=== PATIENT | female | born 1980 | race Two or more races ===

== ENCOUNTER 2016-12-14 08:15 | Emergency (ER) | payer OTHER ==
[2016-12-14 08:26] VITALS: BP 133/86; PULSE 90; TEMP 98.3; BMI 29.2
--- NOTE | 2016-12-14 08:38 | PDOC ---
History of Present Illness - General Chief Complaint: Sore Throat Stated Complaint: SORE THROAT Time Seen by Provider: 12/14/16 08:37 History Source: Patient Exam Limitations: No Limitations - History of Present Illness Initial Comments: 12/14/16 09:03 CHIEF COMPLAINT: Sore throat nasal congestion cough with body aches HISTORY OF PRESENT ILLNESS: Pt. is a 36-year-old female with history of fatty liver here today complaining of sore throat, nasal congestion, chills, with subjective fever and body aches with productive cough of greenish phlegm 3 days. Patient reports that she is up-to-date with immunizations including influenza. Patient denies any sick contacts. Patient denies any difficulty swallowing or any shortness of breath. Patient has had no recent travel. Timing/Duration: intermittent Severity: mild Associated Symptoms: reports: cough (greenish phelgm ), fever/chills, other ( bodyaches and sore throat, nasal congestion ) Past History - Past Medical History Allergies/Adverse Reactions: Allergies Allergy/AdvReac Type Severity Reaction Status Date / Time amoxicillin [Amoxicillin] Allergy Rash Verified 12/14/16 08:26 latex [Latex] Allergy Rash Verified 12/14/16 08:26 Home Medications: Ambulatory Orders Guaifenesin Dm [Mucinex Dm -] 1 tab PO Q12H PRN #10 tab.er.12h MDD 2 12/14/16 Liver Disease: Yes (FATTY LIVER) Suicide Attempt (Hx): No - Surgical History Abdominal Surgery: Yes Cholecystectomy: Yes - Immunization History Immunization Up to Date: Yes - Psycho/Social/Smoking Cessation Hx Anxiety: No Suicidal Ideation: No Smoking Status: No Smoking History: Never smoked Have you smoked in the past 12 months: No Number of Cigarettes Smoked Daily: 0 Information on smoking cessation initiated: No Hx Alcohol Use: No Drug/Substance Use Hx: No Substance Use Type: None Review of Systems - Review of Systems Able to Perform ROS?: Yes Constitutional: Yes: Chills, Fever (subjective ) HEENTM: Yes: Nose Congestion, Throat Pain Respiratory: Yes: Productive cough (greenish phelgm ). No: Orthopnea, Shortness of Breath, SOB with Exertion, SOB at Rest, Stridor, Wheezing, Hemoptysis Cardiac (ROS): No: Symptoms Reported ABD/GI: No: Symptoms Reported : No: Symptoms Reported Musculoskeletal: Yes: Other (bodyaches) Integumentary: No: Symptoms Reported Neurological: No: Symptoms reported *Physical Exam - Vital Signs Last Vital Signs Temp Pulse Resp BP Pulse Ox 98.3 F 90 18 133/86 98 12/14/16 08:23 12/14/16 08:23 12/14/16 08:23 12/14/16 08:23 12/14/16 08:23 - Physical Exam General Appearance: Yes: Appropriately Dressed HEENT: positive: TMs Normal, Pharyngeal Erythema, Nasal Congestion. negative: Tonsillar Exudate, Tonsillar Erythema, Rhinorrhea, Sinus Tenderness Neck: negative: Lymphadenopathy (R), Lymphadenopathy (L) Respiratory/Chest: positive: Lungs Clear, Normal Breath Sounds. negative: Chest Tender, Respiratory Distress Cardiovascular: positive: Regular Rhythm, Regular Rate, S1, S2 Integumentary: positive: Normal Color Neurologic: positive: Alert, Responsive Medical Decision Making - Medical Decision Making 12/14/16 09:04 Pt. is a 36-year-old female with history of fatty liver here today complaining of sore throat, nasal congestion, chills, with subjective fever and body aches with productive cough of greenish phlegm 3 days. Patient reports that she is up -to-date with immunizations including influenza. Patient denies any sick contacts. Patient denies any difficulty swallowing or any shortness of breath. Patient has had no recent travel. She took ibuprofen at 7 AM today. R/o Strep Throat R/O influenza A or B URI PLAN: throat C & S negative influenza A or B rapid negative Mucinex DM 1 cap q12 hrs prn cough # 10 12/14/16 09:43 *DC/Admit/Observation/Transfer Diagnosis at time of Disposition: Upper respiratory infection, viral - Discharge Dispostion Disposition: HOME Condition at time of disposition: Stable - Prescriptions Prescriptions: Guaifenesin Dm [Mucinex Dm -] 1 tab PO Q12H PRN #10 tab.er.12h MDD 2 PRN Reason: Cough - Patient Instructions Additional Instructions: Drink A lot a fluids and rest Take ibuprofen as needed as directed by online marketing strategist for body aches or fever Return to emergency room if symptoms worsen any difficulty breathing or swallowing or any new symptoms develop Follow-up with your primary care provider within the next few days Patient voiced understanding of discharge instructions and all questions were answered - Post Discharge Activity Work/School Note: Back to Work
== END 2016-12-14 09:54 | disposition home or self-care (01) ==
LOC: JERFT 08:15
DX: J06.9 Acute upper respiratory infection, unspecified (principal); B97.89 Other viral agents as the cause of diseases classified elsewhere
CPT/HCPCS: 87070; 87430; 87804; 99281-25

== ENCOUNTER 2017-02-17 10:14 | Emergency (ER) | payer OTHER ==
[2017-02-17 10:28] VITALS: BP 118/85; PULSE 77; TEMP 97.8; BMI 30.2
[2017-02-17] MEDS ORDERED: KETOROLAC TROMETHAMINE 60 MG/2 ML VIAL ONE (11:05)
[2017-02-17] MEDS ORDERED: CYCLOBENZAPRINE HCL 10 MG TABLET (FP) ONE ×2 (11:05→11:15)
[2017-02-17] MEDS ORDERED: CYCLOBENZAPRINE HCL 10 MG TABLET (FP) PO ONE (11:19)
[2017-02-17] MEDS ORDERED: KETOROLAC TROMETHAMINE 60 MG/2 ML VIAL IM ONE (11:19)
--- NOTE | 2017-02-17 11:24 | PDOC ---
History of Present Illness - General Chief Complaint: Back Pain Stated Complaint: BACK PAIN Time Seen by Provider: 02/17/17 10:35 History Source: Patient Exam Limitations: No Limitations - History of Present Illness Initial Comments: 02/17/17 11:20 Patient is here with complaints of left back pain. 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 pain has progressively worsened over the past few days. Had same type of pain in her right side some years ago. Otherwise no recent trauma, fevers, no problems with bowel or bladder otherwise been mildly constipated past couple days. I tubal ligation many years ago and is not sexually active now 02/17/17 11:43 Occurred: reports: just prior to arrival Pain Location: reports: back Method of Injury: Yes: unknown Associated Symptoms (Fall): denies symptoms Past History - Travel Traveled outside of the country in the last 30 days: No Close contact w/someone who was outside of country & ill: No - Past Medical History Allergies/Adverse Reactions: Allergies Allergy/AdvReac Type Severity Reaction Status Date / Time amoxicillin [Amoxicillin] Allergy Rash Verified 02/17/17 10:19 latex [Latex] Allergy Rash Verified 02/17/17 10:19 Home Medications: Ambulatory Orders Cyclobenzaprine HCl [Flexeril 10 mg] 10 mg PO BID PRN #14 tablet 02/17/17 Liver Disease: Yes (FATTY LIVER) Suicide Attempt (Hx): No - Surgical History Abdominal Surgery: Yes Cholecystectomy: Yes - Immunization History Immunization Up to Date: Yes - Psycho/Social/Smoking Cessation Hx Anxiety: No Suicidal Ideation: No Smoking Status: No Smoking History: Never smoked Have you smoked in the past 12 months: No Number of Cigarettes Smoked Daily: 0 Information on smoking cessation initiated: No Hx Alcohol Use: No Drug/Substance Use Hx: No Substance Use Type: None Trauma Specific PMHX - Complaint Specific PMHX Back Injury: Yes Neck Injury: Yes Review of Systems - Review of Systems Able to Perform ROS?: Yes Is the patient limited Mongolian proficient: Yes Constitutional: Yes: Symptoms Reported, See HPI. No: Malaise HEENTM: Yes: See HPI. No: Symptoms Reported Respiratory: Yes: See HPI. No: Symptoms reported, Cough Musculoskeletal: Yes: Symptoms Reported, See HPI, Back Pain Integumentary: No: Symptoms Reported Neurological: Yes: Symptoms reported, See HPI All Other Systems: Reviewed and Negative *Physical Exam - Vital Signs Last Vital Signs Temp Pulse Resp BP Pulse Ox 97.8 F 77 18 118/85 98 02/17/17 10:16 02/17/17 10:16 02/17/17 10:16 02/17/17 10:16 02/17/17 10:16 - Physical Exam General Appearance: Yes: Nourished, Appropriately Dressed, Apparent Distress, Mild Distress HEENT: positive: EOMI, DENICE, Normal ENT Inspection, TMs Normal, Pharynx Normal Neck: positive: Supple. negative: Tender Respiratory/Chest: positive: Lungs Clear, Normal Breath Sounds Cardiovascular: positive: Regular Rate Gastrointestinal/Abdominal: positive: Normal Bowel Sounds, Soft. negative: Tender, Guarding, Rebound, Tenderness Musculoskeletal: positive: Normal Inspection Extremity: positive: Normal Capillary Refill, Normal Inspection Integumentary: positive: Normal Color, Dry Neurologic: positive: catering cook II-XII NML intact, Fully Oriented, Alert, Normal Mood/ Affect, Normal Response, Motor Strength 5/5 Progress Note - Progress Note Progress Note: back strain- treat with NSAIDs and cyclobenzaprine *DC/Admit/Observation/Transfer Diagnosis at time of Disposition: Muscle spasm of back - Discharge Dispostion Disposition: HOME Condition at time of disposition: Stable Admit: No - Patient Instructions Printed Discharge Instructions: DI for Back Spasm Additional Instructions: Rest, no heavy lifting or exercise until pain is resolved Hot soaks to neck and low back as often as possible/hot showers or Jacuzzis No massage or therapy until spasm is gone Continue ibuprofen 2-200 mg tablets every 6 hours for the next 3 days then as needed for pain and swelling Cyclobenzaprine 1-10mg every 8 hours as needed for spasm If not significant improvement within 24 hours with medication and rest regime, followup with private physician for change in medications and /or therapy. - Post Discharge Activity Work/School Note: Back to Work
== END 2017-02-17 11:51 | disposition home or self-care (01) ==
LOC: JERFT 10:14
PROC: 3E0233Z Introduction of Anti-inflammatory into Muscle, Percutaneous Approach (ICD-10-PCS; principal; 2017-02-17)
DX: M62.830 Muscle spasm of back (principal); K76.0 Fatty (change of) liver, not elsewhere classified
CPT/HCPCS: 99281-25

== ENCOUNTER 2017-11-22 15:16 | Emergency (ER) | payer OTHER ==
[2017-11-22 15:40] VITALS: TEMP 98.2; BMI 28.9
--- NOTE | 2017-11-22 15:42 | PDOC ---
Rapid Medical Evaluation Time Seen by Provider: 11/22/17 15:39 Medical Evaluation: Allergies Allergy/AdvReac Type Severity Reaction Status Date / Time amoxicillin [Amoxicillin] Allergy Rash Verified 11/22/17 15:35 latex [Latex] Allergy Rash Verified 11/22/17 15:35 11/22/17 15:39 I have performed a brief in-person evaluation of this patient. The patient presents with a chief complaint of sorethroat x 2 days, pelvic cramping and heavy vaginal bleeding since biopsy 11/14/17 and requesting hiv testing. Denies dizziness, headache or shortness of breath. Pertinent physical exam finding are NAD unlabored breathing +bowel sounds, non tender abdomen I have ordered the following: labs, rapid strep, urine preg ordered The patient will proceed to the ED for further evaluation.
--- NOTE | 2017-11-22 16:25 | PDOC ---
Attending Attestation - Resident Resident Name: AmericaPoonam - ED Attending Attestation I have performed the following: I have examined & evaluated the patient, The case was reviewed & discussed with the resident, I agree w/resident's findings & plan - HPI HPI: 11/22/17 16:23 37-year-old female presents requesting HIV testing and evaluation for vaginal bleeding. Patient recently found out that her ex- tested positive for HIV , unclear when he converted or contracted the illness. She has not had any significant exposure to him in about 11 years. She has no red flags on history or physical exam. Patient also had colposcopy a few days ago. She has irregular menses, and began having vaginal bleeding prior to the colposcopy, now presents with increased vaginal bleeding since then. Mild cramping but no generalized abdominal pain, no fevers or chills. - Physicial Exam PE: 11/22/17 16:24 Vital signs stable Well-appearing Abdomen is benign Cardiac pulmonary exam is normal Pelvic per resident - Medical Decision Making 11/22/17 16:24 Patient seen and evaluated with the resident. I agree with the overall evaluation, assessment, and management with the following summary of visit: 37-year-old female presents for HIV testing, seems low risk exposure. Also with vaginal bleeding, hemodynamically stable, possibly her usual menses but rule out bleeding surgical site. Labs sent Reassure, Dispo accordingly
[2017-11-22 16:34] LABS: BASO % 0.7 % (0-2.0); EOS % 5.9 % (0-4.5); HEMATOCRIT 38.6 % (32.4-45.2); HEMOGLOBIN 13.4 GM/dL (10.7-15.3); LYMPH % 19.8 % (8-40); MCH 28.4 pg (25.7-33.7); MCHC 34.6 g/dl (32.0-36.0); MEAN PLT VOLUME 7.3 fl (7.5-11.1); MONO % 7.8 % (3.8-10.2); NEUT % 65.8 % (42.8-82.8); PLATELET COUNT 311 K/MM3 (134-434); RBC 4.71 M/mm3 (3.60-5.2); RDW 13.4 % (11.6-15.6); WHITE BLOOD COUNT 7.2 K/mm3 (4.0-10.0)
--- NOTE | 2017-11-22 17:05 | PDOC ---
History of Present Illness - General Chief Complaint: Vaginal Bleeding Stated Complaint: THROAT PAIN Time Seen by Provider: 11/22/17 15:39 - History of Present Illness Initial Comments: 11/22/17 17:03 Patient is a 37 year old female with a PMH of Sciatica, GERD, Hepatic Steatosis and possible fibroids who presents to our ED for evaluation of vaginal bleeding and a request for HIV testing. Patient states she had a colposcopy on 11/14/17 and has been bleeding intermittently bright red blood w/o clots since that time. Endorses fevers/chills, denies abdominal cramping, lightheadedness, shortness of breath palpations. Patient notes irregular menses LMP was in August 2017 and for the last 2-3 years her menstrual cycle has been irregular occurring 4-5x annually. Patient requesting HIV testing as her recently disclosed he tested positive for HIV and he is unsure when he contracted the disease. Patient notes her last sexual activity with was > 10 years prior however given his uncertain h/o disease she would like HIV testing. Allergy: Amoxicillin Surgery: denies Social: denies nicotine, denies alcohol, denies recreational drugs Past History - Past Medical History Allergies/Adverse Reactions: Allergies Allergy/AdvReac Type Severity Reaction Status Date / Time amoxicillin [Amoxicillin] Allergy Rash Verified 11/22/17 15:35 latex [Latex] Allergy Rash Verified 11/22/17 15:35 Home Medications: Ambulatory Orders Cyclobenzaprine HCl [Flexeril 10 mg] 10 mg PO BID PRN #14 tablet 02/17/17 COPD: No Liver Disease: Yes (FATTY LIVER) - Surgical History Abdominal Surgery: Yes Cholecystectomy: Yes - Immunization History Immunization Up to Date: Yes - Suicide/Smoking/Psychosocial Hx Smoking Status: No Smoking History: Never smoked Have you smoked in the past 12 months: No Number of Cigarettes Smoked Daily: 0 Hx Alcohol Use: No Drug/Substance Use Hx: No Substance Use Type: None Review of Systems - Review of Systems Constitutional: No: Chills, Fever HEENTM: Yes: Throat Pain. No: Nose Congestion Respiratory: No: Cough, Shortness of Breath Cardiac (ROS): No: Chest Pain, Lightheadedness, Palpitations ABD/GI: Yes: Abdominal cramping. No: Constipated, Diarrhea, Nausea, Vomiting : Yes: Other (vaginal bleeding). No: Burning, Dysuria Psychiatric: Yes: Anxiety, Stressors. No: Depression *Physical Exam - Vital Signs Last Vital Signs Temp Pulse Resp BP Pulse Ox 98.2 F 87 19 122/85 97 11/22/17 15:36 11/22/17 15:36 11/22/17 15:36 11/22/17 15:36 11/22/17 15:36 - Physical Exam Comments: 11/22/17 17:37 GENERAL: Awake, alert, and fully oriented, in no acute distress HEAD: No signs of trauma EYES: PERRLA, EOMI, sclera anicteric, conjunctiva clear ENT: Auricles normal inspection, hearing grossly normal, nares patent, oropharynx clear without exudates. Moist mucosa NECK: Nontender, no stepoffs, Normal ROM, supple, no lymphadenopathy, JVD, or masses LUNGS: Breath sounds equal, clear to auscultation bilaterally. No wheezes, and no crackles HEART: Regular rate and rhythm, normal S1 and S2, no murmurs, rubs or gallops ABDOMEN: Soft, nontender, normoactive bowel sounds. No guarding, no rebound. No masses : Pelvic exam: closed cervical os, bright red blood in vaginal vault, (-) CMT, Non-palpable adenxa EXTREMITIES: Normal range of motion, no edema. No clubbing or cyanosis. No cords, erythema, or tenderness ED Treatment Course - LABORATORY CBC & Chemistry Diagram: 11/22/17 16:17 11/22/17 16:17 - ADDITIONAL ORDERS Additional order review: 11/22/17 15:50 Group A Strep Rapid Antigen - Preliminary Throat 11/22/17 16:17 RBC 4.71 MCV 82.0 MCHC 34.6 RDW 13.4 MPV 7.3 L Neutrophils % 65.8 Lymphocytes % 19.8 Monocytes % 7.8 D Eosinophils % 5.9 H Basophils % 0.7 Medical Decision Making - Medical Decision Making 11/22/17 17:25 37 year old female presents for HIV testing and requesting evaluation of vaginal bleed - recent h/o of colposcopy 5 days previous. Pelvic exam shows closed cervical os w blood in vaginal vault -- suggestive menstrual bleed. HIV + CBC pending 11/22/17 18:37 CBC negative for anemia. HIV pending. 11/22/17 18:43 HIV negative. Will discharge patient home with return precautions and instruction to f/u with PMD. Patient ambulatory tolerating PO intake. I discussed the physical exam findings, ancillary test results and final diagnoses with the patient. I answered all of the patient's questions. The patient was satisfied with the care received and felt comfortable with the discharge plan and treatment plan. The patient will return to the Emergency Department with any new, persistent or worsening symptoms. *DC/Admit/Observation/Transfer Diagnosis at time of Disposition: Encounter for HIV (human immunodeficiency virus) test - Discharge Dispostion Disposition: HOME Condition at time of disposition: Good Admit: No - Referrals Referrals: Audrey Izaguirre MD [Primary Care Provider] - - Patient Instructions Printed Discharge Instructions: DI for Vaginal Bleeding Additional Instructions: Your HIV test returned negative. Please make a follow-up appointment with your OB-FUNERAL PREARRANGEMENT COUNSELOR within the next 24-48 hours for further evaluation of your vaginal bleeding. Return to the Emergency Department for any new/worsening concerning symptoms. - Post Discharge Activity Forms/Work/School Notes: Back to Work
[2017-11-22 17:08] LABS: ALBUMIN 4.1 g/dl (3.4-5.0); ALK PHOS 108 U/L (45-117); ANION GAP 4 (8-16); BILIRUBIN,TOTAL 0.9 mg/dL (0.2-1.0); BLOOD UREA NITROGEN 13 mg/dL (7-18); CALCIUM 9.1 mg/dL (8.5-10.1); CHLORIDE 105 mmol/L (98-107); CO2 29 mmol/L (21-32); CREATININE 0.5 mg/dL (0.55-1.02); GLUCOSE,RANDOM 117 mg/dL (74-106); POTASSIUM 4.1 mmol/L (3.5-5.1); SGOT/AST 118 U/L (15-37); SGPT/ALT 131 U/L (12-78); SODIUM 138 mmol/L (136-145); TOT PROT 8.1 g/dl (6.4-8.2)
[2017-11-22 19:45] VITALS: BP 120/84; PULSE 80
== END 2017-11-22 19:45 | disposition home or self-care (01) ==
LOC: JER 15:16
DX: N93.9 Abnormal uterine and vaginal bleeding, unspecified (principal); Z98.890 Other specified postprocedural states; Z11.4 Encounter for screening for human immunodeficiency virus [HIV]
CPT/HCPCS: 36415; 80053; 84703; 85025; 87070; 87389; 87430; 99282-25

== ENCOUNTER 2018-07-15 10:29 | Emergency (ER) | payer OTHER ==
[2018-07-15 10:43] VITALS: BMI 29.2
[2018-07-15] MEDS ORDERED: SODIUM CHLORIDE 1,000 ML IV STA (12:01)
[2018-07-15] MEDS ORDERED: ONDANSETRON 4 MG/2 ML VIAL IVPUSH ONE (12:01)
[2018-07-15] MEDS ORDERED: ONDANSETRON 4 MG/2 ML VIAL ONE ×2 (12:48→12:57)
[2018-07-15 13:11] LABS: HEMATOCRIT 38.3 % (32.4-45.2); HEMOGLOBIN 13.5 GM/dL (10.7-15.3); MCHC 35.2 g/dl (32.0-36.0); MEAN CELL VOLUME 79.6 fl (80-96); MEAN PLT VOLUME 7.2 fl (7.5-11.1); PLATELET COUNT 363 K/MM3 (134-434); RBC 4.82 M/mm3 (3.60-5.2); RDW 13.4 % (11.6-15.6)
[2018-07-15 13:28] LABS: ALBUMIN 3.2 g/dl (3.4-5.0); ALK PHOS 101 U/L (45-117); ANION GAP 7 MMOL/L (8-16); BILIRUBIN,TOTAL 2.3 mg/dL (0.2-1); BLOOD UREA NITROGEN 10 mg/dL (7-18); CALCIUM 9.2 mg/dL (8.5-10.1); CHLORIDE 101 mmol/L (98-107); CO2 28 mmol/L (21-32); CREATININE 0.8 mg/dL (0.55-1.3); GLUCOSE,RANDOM 165 mg/dL (74-106); POTASSIUM 3.8 mmol/L (3.5-5.1); SGOT/AST 10 U/L (15-37); SGPT/ALT 31 U/L (13-61); SODIUM 137 mmol/L (136-145); TOT PROT 7.2 g/dl (6.4-8.2)
[2018-07-15 13:35] LABS: ADD RBC MORPHOLOGY YES; WHITE BLOOD COUNT 32.6 K/mm3 (4.0-10.0)
--- NOTE | 2018-07-15 15:01 | PDOC ---
History of Present Illness - General Chief Complaint: Pain Stated Complaint: POST OP PAIN Time Seen by Provider: 07/15/18 11:40 History Source: Patient Exam Limitations: No Limitations - History of Present Illness Initial Comments: 37 y/o F hx of cholecystectomy 2008, recent hysterectomy at [facility] 4 days (patient was discharged the same day of procedure) presents with chills, nausea and 4 episodes of NBNB emesis from yesterday. Also had 1 episode of watery diarrhea from yesterday, but that has now resolved. Unsure of fever as she did not check temperature. Also mentions feeling a bit fatigued, lightheaded. States, however, she tolerated bread, cereal , crackers and water today. Has mild vaginal spotting, but denies heavy bleeding. Denies urinary complaints. States she tried calling [facility] yesterday but no one picked up the phone. 07/15/18 14:55 Past History - Past Medical History Allergies/Adverse Reactions: Allergies Allergy/AdvReac Type Severity Reaction Status Date / Time amoxicillin [Amoxicillin] Allergy Rash Verified 07/15/18 10:42 latex [Latex] Allergy Rash Verified 07/15/18 10:42 Home Medications: Ambulatory Orders NK [No Known Home Medication] 07/15/18 COPD: No CHF: No Liver Disease: Yes (FATTY LIVER) - Surgical History Abdominal Surgery: Yes Cholecystectomy: Yes - Reproductive History Cervical CA: No Dysfunctional Uterine Bleeding: No Ectopic : No Endometrial CA: No Polycystic Ovaries: No Tubal Ligation: No - Immunization History Immunization Up to Date: Yes - Suicide/Smoking/Psychosocial Hx Smoking Status: No Smoking History: Never smoked Have you smoked in the past 12 months: No Number of Cigarettes Smoked Daily: 0 Information on smoking cessation initiated: No Hx Alcohol Use: No Drug/Substance Use Hx: No Substance Use Type: None Review of Systems - Review of Systems Comments:: See HPI 07/15/18 14:59 *Physical Exam - Vital Signs Last Vital Signs Temp Pulse Resp BP Pulse Ox 98.7 F 106 H 18 105/55 L 100 07/15/18 10:31 07/15/18 10:31 07/15/18 10:31 07/15/18 10:31 07/15/18 10:31 - Physical Exam General Appearance: No: Apparent Distress Respiratory/Chest: positive: Lungs Clear, Normal Breath Sounds. negative: Respiratory Distress Cardiovascular: positive: Regular Rhythm, Regular Rate, S1, S2. negative: Murmur Gastrointestinal/Abdominal: positive: Tender (Mild TTP along lower abdomen). negative: Distended, Guarding, Rebound, Mass Musculoskeletal: negative: CVA Tenderness Neurologic: positive: Fully Oriented, Alert, Normal Mood/Affect ED Treatment Course - LABORATORY CBC & Chemistry Diagram: 07/15/18 12:58 07/15/18 12:58 - ADDITIONAL ORDERS Additional order review: Laboratory Results 07/15/18 12:58 Sodium 137 Potassium 3.8 Chloride 101 Carbon Dioxide 28 Anion Gap 7 L BUN 10 Creatinine 0.8 Creat Clearance w eGFR > 60 Random Glucose 165 H Calcium 9.2 Total Bilirubin 2.3 H AST 10 L ALT 31 Alkaline Phosphatase 101 Total Protein 7.2 Albumin 3.2 L 07/15/18 12:58 RBC 4.82 MCV 79.6 L MCHC 35.2 RDW 13.4 MPV 7.2 L Neutrophils % No Result Required. Lymphocytes % No Result Required. - RADIOLOGY Radiology Studies Ordered: Category Date Time Status ABDOMEN & PELVIS CT WITH CONTR [CT] Stat CT Scan 07/15/18 12:22 Taken - Medications Given in the ED: ED Medications Discontinued Medications Generic Name Dose Route Start Last Admin Trade Name Freq PRN Reason Stop Dose Admin Sodium Chloride 1,000 mls @ 1,000 mls/hr 07/15/18 12:01 07/15/18 12:59 Normal Saline - IV 07/15/18 13:00 1,000 mls/hr ASDIR STA Administration Ondansetron HCl 4 mg 07/15/18 12:01 07/15/18 12:59 Zofran Injection IVPUSH 07/15/18 12:02 4 mg ONCE ONE Administration Medical Decision Making - Medical Decision Making 37 y/o F s/p post-op day 4 from hysterectomy presents with lower abdominal discomfort, n/v, chills and fatigue. Will r/o possible intraabdominal abscess or other pathology. Also consider anemia given fatigue and lightheadedness. Plan : CBC, BMP, type and screen CT abd/pelvis, IVF, Zofran Orthostats done and negative: Sitting BP 97/59, HR 100 Standing 107/74, HR 106 07/15/18 15:01 CT abd/pelvis shows concern for phlegmon, no drainable abscess noted Case d/w OB, Dr. Fried, at [facility], who accepts patient for transfer for further care; advised to hold off on abx for now Patient to be transferred to [facility] ED Pending callback 07/15/18 16:48 Patient unable to be accepted by ED Patient accepted by Dr. Fried - he advised for Aztreonam 2 gram and Clindamycin 900 mg while patient is waiting for transport 07/15/18 18:36 *DC/Admit/Observation/Transfer Diagnosis at time of Disposition: Phlegmon - Discharge Dispostion Disposition: TRANSFER ACUTE CARE/OTHER HOSP - Referrals Referrals: Ellen Ortega MD [Primary Care Provider] - - Patient Instructions - Post Discharge Activity - Transfer to Acute Care Facility Receiving Facility: Other hosp. not listed ([facility])
[2018-07-15 15:18] LABS: ANISOCYTOSIS 0; MACROCYTOSIS 0; PLATELET ESTIMATE NORMAL
[2018-07-15] MEDS ORDERED: AZTREONAM 2 GM in DEXTROSE 5%-WATER 100 ML IVPB ONE (17:24)
[2018-07-15] MEDS ORDERED: CLINDAMYCIN 900 MG PREMIX IVPB 900 MG/50 ML BAG IVPB ONE (17:25)
[2018-07-15] MEDS ORDERED: CLINDAMYCIN 600MG PREMIX IVPB 600 MG/50 ML BAG IVPB ONE (17:57)
[2018-07-15 19:41] VITALS: BP 111/87; PULSE 115; TEMP 99.1
== END 2018-07-15 19:50 | disposition short-term general hospital (02) ==
LOC: JER 10:29
PROC: 3E03329 Introduction of Other Anti-infective into Peripheral Vein, Percutaneous Approach (ICD-10-PCS; principal; 2018-07-15)
PROC: 3E03329 Introduction of Other Anti-infective into Peripheral Vein, Percutaneous Approach (ICD-10-PCS; 2018-07-15)
PROC: 3E033GC Introduction of Other Therapeutic Substance into Peripheral Vein, Percutaneous Approach (ICD-10-PCS; 2018-07-15)
DX: K65.1 Peritoneal abscess (principal); Z98.890 Other specified postprocedural states; Z90.710 Acquired absence of both cervix and uterus
CPT/HCPCS: 36415; 74177-TC; 80053; 85025; 86850; 86900; 86901; 99283-25; J7030

== ENCOUNTER 2019-04-05 16:21 | Emergency (ER) | payer OTHER | END 2019-04-05 17:35 | disposition home or self-care (01) | LOC: JERFT 16:21 ==

== ENCOUNTER 2019-06-05 12:36 | Emergency (ER) | payer OTHER ==
[2019-06-05 12:58] VITALS: BP 127/79; PULSE 86; TEMP 98; BMI 28.1
[2019-06-05] MEDS ORDERED: DEXAMETHASONE LIQUID 0.5 MG/5 ML PO ONE (14:04)
[2019-06-05] MEDS ORDERED: DEXAMETHASONE SOD PHOSPHATE 10 MG/1 ML VIAL ONE (14:12)
--- NOTE | 2019-06-05 14:33 | PDOC ---
History of Present Illness - General Chief Complaint: Eye Problem Stated Complaint: RT. EYE PAIN Time Seen by Provider: 06/05/19 13:20 - History of Present Illness Initial Comments: 06/05/19 14:05 CHIEF COMPLAINT: eyelid swelling HISTORY OF PRESENT ILLNESS: 38 yo F with no known PMH presents to [facility] with eyelid swelling. Patient reports that she was cleaning a room earlier today at her job that was suspected to have bed bugs, and although she wore full personal protective wear, after she finished cleaning the room she noticed swelling to her right eyelid. She states that the eyelid does itch but denies any vision change or rash to any other part of her body. Denies any difficulty breathing, or any swelling of the throat, tongue, lips, neck, mouth. No recent travel or sick contacts. PAST MEDICAL HISTORY: Denies past medical history FAMILY HISTORY: Denies SOCIAL HISTORY: Denies tobacco, alcohol, illicit drug use. SURGICAL HISTORY: Denies ALLERGIES: No known drug allergies REVIEW OF SYSTEMS General/Constitutional: Denies fever or chills. Denies weakness, weight change. HEENT: Eyelid swelling. Denies change in vision. Denies ear pain or discharge. Denies sore throat. Cardiovascular: Denies chest pain or shortness of breath. Respiratory: Denies cough, wheezing, or hemoptysis. Gastrointestinal: Denies nausea, vomiting, diarrhea or constipation. Denies rectal bleeding. Genitourinary: Denies dysuria, frequency, or change in urination. Musculoskeletal: Denies joint or muscle swelling or pain. Denies neck or back pain. Skin and breasts: Denies rash or easy bruising. Neurologic: Denies headache, vertigo, loss of consciousness, or loss of sensation. Psychiatric: Denies depression or anxiety. Endocrine: Denies increased thirst. Denies abnormal weight change. Hematologic/Lymphatic: Denies anemia, easy bleeding, or history of blood clots. Allergic/Immunologic: Denies hives or skin allergy. Denies latex allergy. PHYSICAL EXAM General Appearance: Well-appearing, appropriately dressed. No apparent distress , no intoxication. HEENT: Mild swelling to R eyelid. EOMI, PERRLA, normal ENT inspection, normal voice, TMs normal, pharynx normal. No conjunctival pallor. No photophobia, scleral icterus. Neck: Supple. Trachea midline. No tenderness, rigidity, carotid bruit, stridor , lymphadenopathy, or thyromegaly. Respiratory/Chest: Lungs CTAB. No shortness of breath, chest tenderness, respiratory distress, accessory muscle use. No crackles, rales, rhonchi, stridor , wheezing, dullness Cardiovascular: RRR. S1, S2. No JVD, murmur, bradycardia, tachycardia. Vascular Pulses: Dorsalis-Pedis (R): 2+, Dorsalis-Pedis (L): 2+ Gastrointestinal/Abdominal: Normal bowel sounds. Abdomen soft, non-distended. No tenderness or rebound tenderness. No organomegaly, pulsatile mass, guarding , hernia, hepatomegaly, splenomegaly. Lymphatic: No adenopathy, tenderness. Musculoskeletal/Extremities: Normal inspection. FROM of all extremities, normal capillary refill. Pelvis Stable. No CVA tenderness. No tenderness to extremities, pedal edema, swelling, erythema or deformity. Integumentary: Appropriate color, dry, warm. 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 Fully oriented, alert. Appropriate mood/affect. Motor strength 5/5. No appreciable EOM palsy, facial droop or sensory deficit. Past History - Past Medical History Allergies/Adverse Reactions: Allergies Allergy/AdvReac Type Severity Reaction Status Date / Time latex [Latex] Allergy Rash Verified 06/05/19 12:59 Home Medications: Ambulatory Orders Clindamycin [Cleocin -] 300 mg PO TID #21 capsule 04/05/19 Ibuprofen 600 mg PO TID #20 tablet 04/05/19 Hydroxyzine HCl 25 mg PO TID PRN #14 tablet 06/05/19 COPD: No CHF: No Liver Disease: Yes (FATTY LIVER) - Surgical History Abdominal Surgery: Yes Cholecystectomy: Yes - Reproductive History Cervical CA: No Dysfunctional Uterine Bleeding: No Ectopic : No Endometrial CA: No Polycystic Ovaries: No Tubal Ligation: No - Immunization History Immunization Up to Date: Yes - Psycho Social/Smoking Cessation Hx Smoking Status: No Smoking History: Never smoked Have you smoked in the past 12 months: No Number of Cigarettes Smoked Daily: 0 Hx Alcohol Use: No Drug/Substance Use Hx: No Substance Use Type: None *Physical Exam - Vital Signs Last Vital Signs Temp Pulse Resp BP Pulse Ox 98 F 86 18 127/79 98 06/05/19 12:54 06/05/19 12:54 06/05/19 12:54 06/05/19 12:54 06/05/19 12:54 Medical Decision Making - Medical Decision Making 06/05/19 14:33 38 yo F with no known PMH [facility] with eyelid swelling. -Decadron Discharge - Discharge Information Problems reviewed: Yes Clinical Impression/Diagnosis: Allergic reaction Qualifiers: Encounter type: initial encounter Qualified Code(s): T78.40XA - Allergy, unspecified, initial encounter Condition: Stable Disposition: HOME - Admission No - Additional Discharge Information Prescriptions: Hydroxyzine HCl 25 mg PO TID PRN #14 tablet PRN Reason: For Itching - Follow up/Referral Referrals: Ellen Ortega MD [Primary Care Provider] - Argenis Harding MD [Staff Physician] - - Patient Discharge Instructions Patient Printed Discharge Instructions: DI for Eye Allergic Reaction - Post Discharge Activity
== END 2019-06-05 14:43 | disposition home or self-care (01) ==
LOC: JERFT 12:36
DX: T78.40XA Allergy, unspecified, initial encounter (principal); H02.843 Edema of right eye, unspecified eyelid; X58.XXXA Exposure to other specified factors, initial encounter; Y93.E9 Activity, other interior property and clothing maintenance; Y92.122 Bedroom in nursing home as the place of occurrence of the external cause; Y99.0 Civilian activity done for income or pay; Z91.040 Latex allergy status
CPT/HCPCS: 99281-25

== ENCOUNTER 2021-03-28 16:46 | Emergency (ER) | payer OTHER ==
[2021-03-28 17:55] VITALS: BP 110/70; PULSE 68; TEMP 98.6; BMI 27.4
== END 2021-03-28 19:00 | disposition home or self-care (01) ==
LOC: FER 16:46
DX: S52.501A Unspecified fracture of the lower end of right radius, initial encounter for closed fracture (principal); V00.141A Fall from scooter (nonmotorized), initial encounter
CPT/HCPCS: 73090-TC-RT-FY; 73110-TC-RT-FY; 73130-TC-RT-FY; 73562-TC-LT-FY; 73562-TC-RT-FY; 99284-25

== ENCOUNTER 2021-04-02 04:27 | Day surgery (SDC) | payer OTHER ==
[2021-04-01 08:42] VITALS: BMI 27.4
[2021-04-02] MEDS ORDERED: DEXAMETHASONE SOD PHOSPHATE 10 MG/1 ML VIAL ONE (09:23)
[2021-04-02] MEDS ORDERED: BUPIVACAINE HCL/PF 0.5% (5MG/ML) 10 ML VIAL ONE (09:23)
[2021-04-02] MEDS ORDERED: MIDAZOLAM HCL 2 MG/2 ML SINGLE DOSE VIAL ONE ×2 (09:24)
[2021-04-02] MEDS ORDERED: ROPIVACAINE HCL 0.5% 30ML VIAL ONE (09:46)
[2021-04-02] MEDS ORDERED: PROPOFOL 20 ML ONE (10:49)
[2021-04-02] MEDS ORDERED: LIDOCAINE HCL/PF 2% SDV 5ML VIAL ONE (10:49)
[2021-04-02] MEDS ORDERED: ceFAZolin SODIUM 1 GM VIAL ONE (11:04)
[2021-04-02] MEDS ORDERED: ceFAZolin 2 GRAM PREMIX BAG IVPB ONE (11:05)
[2021-04-02] MEDS ORDERED: oxyCODONE HCL 5 MG TABLET PO PRN ×2 (13:12)
[2021-04-02] MEDS ORDERED: ONDANSETRON 4 MG/2 ML VIAL IVPUSH PRN (13:12)
[2021-04-02] MEDS ORDERED: LACTATED RINGERS SOLUTION 1,000 ML IV SCH (13:15)
[2021-04-02] MEDS ORDERED: ACETAMINOPHEN 325 MG TABLET (FP) ONE (14:29)
[2021-04-02] MEDS ORDERED: ACETAMINOPHEN 325 MG TABLET (FP) PO ONE (14:30)
[2021-04-02 15:21] VITALS: BP 142/80; PULSE 78; TEMP 97.8
== END 2021-04-02 15:15 | disposition home or self-care (01) ==
LOC: JASU-SURG 04:27
PROVIDERS: ATTEND Orthopaedic Surgery
PROC: 0PSH04Z Reposition Right Radius with Internal Fixation Device, Open Approach (ICD-10-PCS; principal; 2021-04-02 10:00)
DX: S52.571A Other intraarticular fracture of lower end of right radius, initial encounter for closed fracture (principal); X58.XXXA Exposure to other specified factors, initial encounter; Y93.9 Activity, unspecified; Y92.9 Unspecified place or not applicable; Y99.9 Unspecified external cause status
CPT/HCPCS: 25608; C1713; 76000-TC-FY; 82962; 94760; J1100

== ENCOUNTER 2021-05-04 11:57 | Emergency (ER) | payer OTHER ==
[2021-05-04 12:17] VITALS: BP 128/89; PULSE 87; TEMP 98.7; BMI 27.4
[2021-05-04] MEDS ORDERED: ERYTHROMYCIN 0.5% OPHTHALMIC OINTMENT 3.5 GM TUBE ONE (12:49)
[2021-05-04] MEDS ORDERED: ERYTHROMYCIN 0.5% OPHTHALMIC OINTMENT 3.5 GM TUBE OS ONE (12:49)
== END 2021-05-04 13:01 | disposition home or self-care (01) ==
LOC: JERFT 11:57
DX: H00.014 Hordeolum externum left upper eyelid (principal); H01.004 Unspecified blepharitis left upper eyelid
CPT/HCPCS: 99283-25

== ENCOUNTER 2023-08-04 16:18 | Emergency (ER) | payer OTHER ==
[2023-08-04 16:29] VITALS: BP 121/70; PULSE 72; RESP 18; TEMP 98.2; BMI 25.6
[2023-08-04] MEDS ORDERED: LIDOCAINE 4% PATCH TP ONE ×2 (17:41→17:45)
[2023-08-04] MEDS ORDERED: KETOROLAC TROMETHAMINE 30 MG/1 ML VIAL IM ONE (17:42)
[2023-08-04] MEDS ORDERED: METHOCARBAMOL 500 MG TABLET PO ONE (17:42)
[2023-08-04] MEDS ORDERED: KETOROLAC TROMETHAMINE 30 MG/1 ML VIAL ONE (17:45)
[2023-08-04] MEDS ORDERED: METHOCARBAMOL 500 MG TABLET ONE (17:45)
== END 2023-08-04 18:49 | disposition home or self-care (01) ==
LOC: JERFT 16:18
PROC: 3E0233Z Introduction of Anti-inflammatory into Muscle, Percutaneous Approach (ICD-10-PCS; principal; 2023-08-04)
DX: M54.50 Low back pain, unspecified (principal); G89.29 Other chronic pain; X50.0XXA Overexertion from strenuous movement or load, initial encounter; Y99.0 Civilian activity done for income or pay
CPT/HCPCS: 72100-TC-FY; 99284-25

== ENCOUNTER 2023-08-12 04:59 | Day surgery (SDC) | payer OTHER ==
[2023-08-10 13:13] VITALS: BMI 25.6
[2023-08-12] MEDS ORDERED: BUPIVACAINE HCL/PF 0.75% 10 ML VIAL ONE (07:20)
[2023-08-12] MEDS ORDERED: LIDOCAINE HCL/PF 1% SDV 5ML VIAL ONE (07:20)
[2023-08-12] MEDS ORDERED: ACETAMINOPHEN 500 MG TABLET (FP) PO PRN (12:00)
[2023-08-12 12:45] VITALS: RESP 18
[2023-08-12] MEDS ORDERED: LIDOCAINE HCL 1% PRESERVATIVE FREE - 30ML VIAL IJ ONE ×2 (14:22→14:33)
[2023-08-12] MEDS ORDERED: BUPIVACAINE HCL/PF 0.75% 10 ML VIAL NR ONE (14:22)
[2023-08-12] MEDS ORDERED: BUPIVACAINE 0.75% IN DEXTROSE/PF 2ML AMPULE NR ONE (14:22)
[2023-08-12 14:52] VITALS: BP 104/55; PULSE 68; TEMP 97.5
[2023-08-12] MEDS ORDERED: ACETAMINOPHEN 500 MG TABLET (FP) ONE (15:28)
== END 2023-08-12 15:58 | disposition home or self-care (01) ==
LOC: JASU-SURG 04:59
PROVIDERS: ATTEND Pain Medicine Pain Medicine
PROC: 3E0T3BZ Introduction of Anesthetic Agent into Peripheral Nerves and Plexi, Percutaneous Approach (ICD-10-PCS; principal; 2023-08-12 14:15)
DX: M47.816 Spondylosis without myelopathy or radiculopathy, lumbar region (principal)
CPT/HCPCS: 76000-TC-FY; 81025

== ENCOUNTER 2023-09-09 04:18 | Day surgery (SDC) | payer OTHER ==
[2023-09-06 13:43] VITALS: BMI 25.0
[~2023-09-09 04:18] MED LIST: BUPIVACAINE HCL/PF 0.75% 10 ML VIAL NR ONE; LIDOCAINE 1% P/F 10 MG/ML VIAL INF ONE
[2023-09-09] MEDS ORDERED: TRIAMCINOLONE ACET 40MG/1ML VIAL ONE (07:33)
[2023-09-09] MEDS ORDERED: BUPIVACAINE HCL/PF 0.75% 10 ML VIAL ONE (07:34)
[2023-09-09] MEDS ORDERED: LIDOCAINE HCL/PF 1% SDV 5ML VIAL ONE (07:34)
[2023-09-09 10:23] VITALS: RESP 18
[2023-09-09] MEDS ORDERED: LIDOCAINE 1% P/F 10 MG/ML VIAL INF ONE (12:05)
[2023-09-09] MEDS ORDERED: BUPIVACAINE HCL/PF 0.75% 10 ML VIAL NR ONE (12:05)
[2023-09-09 13:07] VITALS: BP 110/72; PULSE 62; TEMP 97.8
== END 2023-09-09 12:45 | disposition home or self-care (01) ==
LOC: JASU-SURG 04:18
PROVIDERS: ATTEND Pain Medicine Pain Medicine
PROC: 3E0T33Z Introduction of Anti-inflammatory into Peripheral Nerves and Plexi, Percutaneous Approach (ICD-10-PCS; 2023-09-09)
PROC: 3E0T3BZ Introduction of Anesthetic Agent into Peripheral Nerves and Plexi, Percutaneous Approach (ICD-10-PCS; principal; 2023-09-09 12:30)
DX: M47.816 Spondylosis without myelopathy or radiculopathy, lumbar region (principal)
CPT/HCPCS: 76000-TC-FY

== ENCOUNTER 2023-10-07 05:06 | Day surgery (SDC) | payer OTHER ==
[2023-10-04 14:43] VITALS: BMI 25.0
[2023-10-07] MEDS: DEXAMETHASONE SOD PHOSPHATE 10 MG/1 ML VIAL IVPUSH ONE
[2023-10-07] MEDS ORDERED: LIDOCAINE HCL/PF 1% SDV 5ML VIAL ONE (07:30)
[2023-10-07] MEDS ORDERED: LIDOCAINE HCL/PF 2% SDV 5ML VIAL ONE (07:30)
[2023-10-07] MEDS ORDERED: BUPIVACAINE HCL/PF 0.75% 10 ML VIAL ONE (07:30)
[2023-10-07] MEDS ORDERED: DEXAMETHASONE SOD PHOSPHATE 10 MG/1 ML VIAL ONE (07:30)
[2023-10-07] MEDS: LIDOCAINE 1% P/F 10 MG/ML VIAL INF ONE ×2 (08:34)
[2023-10-07] MEDS: LIDOCAINE HCL/PF 2% SDV 5ML VIAL INF ONE ×2 (08:34)
[2023-10-07] MEDS: BUPIVACAINE HCL/PF 0.75% 10 ML VIAL NR ONE ×2 (08:34)
[2023-10-07 09:39] VITALS: RESP 18
[2023-10-07] MEDS ORDERED: ACETAMINOPHEN 500 MG TABLET (FP) ONE (09:54)
[2023-10-07] MEDS: ACETAMINOPHEN 500 MG TABLET (FP) PO PRN (09:57)
[2023-10-07 13:35] VITALS: BP 114/72; PULSE 70; TEMP 97.8
== END 2023-10-07 10:36 | disposition home or self-care (01) ==
LOC: JASU-SURG 05:06
PROVIDERS: ATTEND Pain Medicine Pain Medicine
PROC: 015B3ZZ Destruction of Lumbar Nerve, Percutaneous Approach (ICD-10-PCS; principal; 2023-10-07 08:15)
DX: M47.816 Spondylosis without myelopathy or radiculopathy, lumbar region (principal)
CPT/HCPCS: 76000-TC-FY; J1100

== ENCOUNTER 2023-10-31 10:06 | Emergency (ER) | payer OTHER ==
[2023-10-31 10:20] VITALS: BP 119/76; PULSE 75; RESP 18; TEMP 97.8; BMI 25.2
[2023-10-31 12:10] LABS: PH,URINE 5.5 (5.0-8.0); URINE APPEARANCE CLEAR; URINE BILIRUBIN NEGATIVE (NEGATIVE); URINE COLOR YELLOW; URINE GLUCOSE (UA) NEGATIVE (NEGATIVE); URINE KETONE NEGATIVE (NEGATIVE); URINE LEUK ESTERASE NEGATIVE (NEGATIVE); URINE NITRITE NEGATIVE (NEGATIVE); URINE PROTEIN NEGATIVE (NEGATIVE)
[2023-10-31 14:29] LABS: SYPHILIS W/ RPR CONF NON-REACTIVE (NONREACTIVE)
[2023-10-31 14:57] LABS: HIV INTERPRETATION NEGATIVE (NEGATIVE)
== END 2023-10-31 13:12 | disposition home or self-care (01) ==
LOC: JERFT 10:06
DX: L29.2 Pruritus vulvae (principal); B37.31 Acute candidiasis of vulva and vagina; R10.2 Pelvic and perineal pain
CPT/HCPCS: 36415; 81003; 86780; 87086; 87389; 87491; 87591; 87661; 99283-25

== ENCOUNTER 2023-11-25 04:42 | Day surgery (SDC) | payer OTHER ==
[2023-11-18 10:45] VITALS: BMI 24.8
[2023-11-25] MEDS ORDERED: LIDOCAINE HCL/PF 1% SDV 5ML VIAL ONE (07:10)
[2023-11-25] MEDS ORDERED: DEXAMETHASONE SOD PHOSPHATE 10 MG/1 ML VIAL ONE (07:10)
[2023-11-25] MEDS ORDERED: ACETAMINOPHEN 500 MG TABLET (FP) PO PRN (09:59)
[2023-11-25 11:06] VITALS: RESP 18
[2023-11-25 14:29] VITALS: BP 123/76; PULSE 69; TEMP 98
== END 2023-11-25 14:00 | disposition home or self-care (01) ==
LOC: JASU-SURG 04:42
PROVIDERS: ATTEND Pain Medicine Pain Medicine
DX: Z53.8 Procedure and treatment not carried out for other reasons (principal)
CPT/HCPCS: 82962; J1100

== ENCOUNTER 2023-11-29 07:13 | Emergency (ER) | payer OTHER ==
[2023-11-29 07:26] VITALS: BP 100/70; PULSE 77; RESP 18; TEMP 98; BMI 25.6
[2023-11-29] MEDS ORDERED: LIDOCAINE 4% PATCH TP ONE (08:48)
[2023-11-29] MEDS ORDERED: ACETAMINOPHEN 325 MG TABLET (FP) ONE (08:48)
[2023-11-29] MEDS ORDERED: CYCLOBENZAPRINE HCL 5 MG TABLET ONE (08:48)
[2023-11-29] MEDS: ACETAMINOPHEN 325 MG TABLET (FP) PO ONE (08:51)
[2023-11-29] MEDS: LIDOCAINE 5% TOPICAL PATCH TP ONE (08:51)
[2023-11-29] MEDS: CYCLOBENZAPRINE HCL 10 MG TABLET (FP) PO ONE (08:51)
[2023-11-29] MEDS ORDERED: KETOROLAC TROMETHAMINE 30 MG/1 ML VIAL ONE (08:55)
[2023-11-29] MEDS: KETOROLAC TROMETHAMINE 30 MG/1 ML VIAL IM ONE (09:00)
[2023-11-29] MEDS ORDERED: LIDOCAINE PATCH REMOVAL MC SCH (22:00)
== END 2023-11-29 09:51 | disposition home or self-care (01) ==
LOC: JER 07:13
PROC: 3E0233Z Introduction of Anti-inflammatory into Muscle, Percutaneous Approach (ICD-10-PCS; principal; 2023-11-29)
DX: G89.29 Other chronic pain (principal); M54.50 Low back pain, unspecified
CPT/HCPCS: 99284-25

== ENCOUNTER 2023-12-27 04:17 | Day surgery (SDC) | payer OTHER ==
[2023-12-23 10:18] VITALS: BMI 24.7
[2023-12-27] MEDS ORDERED: LIDOCAINE HCL/PF 1% SDV 5ML VIAL ONE (07:18)
[2023-12-27] MEDS ORDERED: DEXAMETHASONE SOD PHOSPHATE 10 MG/1 ML VIAL ONE (07:19)
[2023-12-27 08:13] VITALS: RESP 18
[2023-12-27] MEDS: IOHEXOL 180 MG/1 ML ML IJ ONE ×2 (09:02)
[2023-12-27] MEDS: DEXAMETHASONE SOD PHOSPHATE 10 MG/1 ML VIAL IVPUSH ONE ×2 (09:02)
[2023-12-27] MEDS: LIDOCAINE 1% P/F 10 MG/ML VIAL INF ONE ×2 (09:02)
[2023-12-27] MEDS ORDERED: ACETAMINOPHEN 500 MG TABLET (FP) ONE (09:26)
[2023-12-27 12:02] VITALS: BP 123/72; PULSE 64; TEMP 97.8
[2023-12-27] MEDS ORDERED: ACETAMINOPHEN 500 MG TABLET (FP) PO PRN (12:38)
== END 2023-12-27 11:32 | disposition home or self-care (01) ==
LOC: JASU-SURG 04:17
PROVIDERS: ATTEND Pain Medicine Pain Medicine
PROC: 3E0R3BZ Introduction of Anesthetic Agent into Spinal Canal, Percutaneous Approach (ICD-10-PCS; 2023-12-27)
PROC: 3E0R33Z Introduction of Anti-inflammatory into Spinal Canal, Percutaneous Approach (ICD-10-PCS; principal; 2023-12-27 09:30)
DX: M54.16 Radiculopathy, lumbar region (principal)
CPT/HCPCS: 76000-TC-FY; J1100

== ENCOUNTER 2024-02-24 16:34 | Emergency (ER) | payer OTHER ==
[2024-02-24 16:57] VITALS: BP 119/66; PULSE 84; RESP 17; TEMP 98.2; BMI 24.1
== END 2024-02-24 18:04 | disposition home or self-care (01) ==
LOC: JERFT 16:34
DX: H00.014 Hordeolum externum left upper eyelid (principal); H57.12 Ocular pain, left eye
CPT/HCPCS: 99283-25

== ENCOUNTER 2024-11-30 16:31 | Emergency (ER) | payer OTHER ==
[2024-11-30 16:39] VITALS: BP 112/68; PULSE 79; RESP 18; TEMP 98.1; BMI 25.4
== END 2024-11-30 17:31 | disposition home or self-care (01) ==
LOC: JERFT 16:31
DX: B37.31 Acute candidiasis of vulva and vagina (principal); N89.8 Other specified noninflammatory disorders of vagina; L29.2 Pruritus vulvae
CPT/HCPCS: 82962; 99283-25